=== PATIENT | male | born 1975 | race Caucasian/White ===

== ENCOUNTER 2022-07-05 08:42 | Emergency (ER) | payer OTHER, SELFPAY ==
[2022-07-05 09:35] VITALS: BP 136/92; PULSE 86; RESP 18; TEMP 36.5; O2SAT 98; BMI 31.1
--- NOTE | 2022-07-05 10:48 | ED_ITS ---
HPI - General Adult General Chief complaint: Dental/Oral Stated complaint: facial swelling Time Seen by Provider: 07/05/22 10:48 Source: patient Mode of arrival: ambulatory Limitations: no limitations History of Present Illness HPI narrative: Patient is a 46 year old assigned male at with no reported medical history presenting to the emergency department today with dental pain. Patient states that a week ago he had a root canal and then a few days after developed pain in the area. Patient states that he was seen by his dentist who started him on Amoxcillin but because he is having worsening swelling, they recommended he come into the hospital. Patient denies any dizziness, lightheadedness, abdominal sarmad n, nausea, vomiting, fever, chills, blurry vision, double vision, loss of vision, chest pain, difficulty breathing, shortness of breath, back pain, night sweats, pain with urination, increased urinary frequency, increased urinary urgency, blood in his urine or stool, syncope or a near syncopal episode, recent trauma or falls, bowel incontinence, bladder incontinence, bowel retention, bladder retention, or any other complaints at this time. Onset (ago): day(s) (4) Location: mouth Radiation: non-radiation Severity: mild Severity scale (1-10): 2 Quality: aching Pain Consistency: constant Relieving factors: none Exacerbating factors: none Associated symptoms: denies other symptoms Treatments prior to arrival: other (amoxicillin) Related Data Previous Rx's Medication Instructions Recorded clindamycin HCl 300 mg capsule 300 mg PO TID 7 days #21 caps 07/05/22 oxycodone 10 mg tablet 10 mg PO Q6H PRN pain #10 tabs 07/05/22 Allergies Allergy/AdvReac Type Severity Reaction Status Date / Time No Known Allergies Allergy Verified 07/05/22 09:35 Review of Systems Constitutional: Constitutional: Reports no additional constitutional complaints, Denies chills, Denies fever(s) and Denies night sweats Eyes: Eyes: Reports no additional eye complaints, Denies blurry vision, Denies change in vision, Denies diplopia, Denies eye discharge, Denies loss of vision and Denies eye pain ENT: Denies dizziness Comments: swelling in mouth Cardiovascular: Cardiovascular: Reports no additional cardiovascular complaints, Denies chest pain, Denies lightheadedness, Denies Loss of Consciousness and Denies dyspnea Respiratory: Respiratory: Reports no additional respiratory complaints and Denies dyspnea Gastrointestinal: Gastrointestinal: Reports no additional gastrointestinal complaints, Denies abdominal pain, Denies melena, Denies hematochezia, Denies change in bowel habits and Denies change in stool character Genitourinary: Genitourinary: Reports no additional male genitourinary complai nts, Denies hematuria, Denies oliguria, Denies difficulty urinating, Denies dysuria, Denies urinary frequency, Denies urinary hesitancy, Denies urinary incontinence and Denies urinary urgency Musculoskeletal: Musculoskeletal: Reports no additional musculoskeletal complaints, Denies numbness and Denies tingling Neurologic: Denies dizziness, Denies loss of vision, Denies numbness and Denies tingling Psychiatric: Psychiatric: Reports no additional psychiatric complaints Endocrine: Endocrine: Reports no additional endocrine complaints Hematologic/Lymphatic: Hematologic/Lymphatic: Reports no additional hematologic/lymphatic complaints Allergic/Immunologic: Allergic/Immunologic: Reports no additional allergic/immunologic complaints PMFSH Past Medical History Attestation statement: The following information was validated with the patient. Source: old records reviewed and nursing notes reviewed Social History Social History Advance Directives: No Advance Directives Information Provided: Yes Physical Exam ED Vital Signs: Vital Signs - 24 hr 07/05/22 09:35 Temperature 97.7 F Pulse Rate 86 Respiratory Rate 18 Blood Pressure 136/92 H Pulse Oximetry 98 Oxygen Delivery Method Room Air BMI result Body Mass Index 31.1 Const General: cooperative, no acute distress, alert and awake Nutritional Appearance: well nourished Orientation/consciousness: patient oriented x3 Limitations: no limitations [facility] Head: Yes normal to inspection and Yes atraumatic Ears: hearing grossly normal bilaterally and external ears normal General nose exam: Normal external nose present, no nasal discharge noted and no epistaxis Face and sinus: Yes normal facial exam, No abrasion and No laceration Mouth: Normal oral and palatal mucosa present, no drooling and no muffled voice Teeth image: 1. swollen fluctuant area - consistent with abscess Eyes General: appearance normal, both eyes and all related structures Periorbital: periorbital findings normal Eyelids: Yes eyelids normal Conjunctivae: conjunctivae normal Pupils: Equal, round and reactive pupils present EOM: EOMs intact bilaterally Neck Neck: Yes normal visual inspection, Yes full ROM and Yes no lymphadenopathy Chest Chest palpation & inspection: normal inspection of the chest Resp Effort & Inspection: normal respiratory effort and able to speak in complete sentences Auscultation: clear to auscultation bilaterally Cardio Rate: regular rate Rhythm: regular rhythm GI Inspection: Yes normal to inspection Palpation (GI): Soft to palpation, not firm, nontender, no guarding and not rigid Neuro General: patient oriented x3 and moves all extremities Cranial nerves: Yes Equal, round and reactive pupils present Cognition (Neuro): normal cognition Motor exam (neuro): 5/5 motor strength present throughout Sensory Exam: Normal double simultaneous stimulation for sensation Coordination: [id number] test normal Extrem General: Yes normal to inspection, Yes full ROM and Yes capillary refill normal Psych Appearance: grossly normal Mental Status: mental status grossly normal Affect: normal affect Attitude: cooperative Thought process: Normal thought process present Thought content: Normal thought content present Insight: Good insight present (Psych) Medications Administered Discontinued Medications Generic Name Dose Route Start Last Admin Trade Name Freq PRN Reason Stop Dose Admin Oxycodone HCl 10 mg 07/05/22 10:54 07/05/22 11:26 Oxycodone Hcl Immed Release 5 Mg Tablet PO 07/05/22 10:55 10 mg ONCE ONE Administration Procedures Abscess I/D Site: oral Technique: needle aspiration Amount of fluid expressed (mL): 10 Sent for culture/gram staining?: No Irrigation: No Packing used?: none Medical Decision Making Medical Decision Making [facility] Narrative: Patient is a 46 year old assigned male at with no reported medical history presenting to the emergency department today with swelling in his mouth. Patient's physical exam showed a small swollen, fluctuant, area as described in the physical exam portion of this chart. I explained my physical exam findings to the patient. I answered all questions asked by the patient. Patient's abscess was drained, per procedure note, without incident. I stressed the importance of the patient taking his medication as prescribed. I stressed the importance of the patient following up with his primary care provider and a dentist. I stressed the importance of the patient returning to the emergency department immediately if his symptoms were to worsen or if he were to develop any dizziness, shortness of breath, difficulty breathing, chest pain, blurry vision, loss of vision, nausea, vomiting, abdominal pain, fever, chills, back pain, or any other complaints. Patient verbalized agreement and understanding with this treatment plan and discharge. Differential Diagnosis Differential Diagnoses: The differential diagnosis associated with the presentation includes dental abscess Discharge Plan Discharge Clinical Impression: Dental abscess Patient Disposition: Home, Self-Care Instructions: Dental Abscess (ED), Narcotic Safety (ED), Safe Disposal of Narcotics (ED) Additional Instructions: Follow up with your primary care provider and your dentist. Return to the emergency department immediately if your symptoms worsen or if you develop any dizziness, shortness of breath, difficulty breathing, chest pain, blurry vision, loss of vision, nausea, vomiting, abdominal pain, fever, chills, back pain, or any other complaints. Call or visit any of the clinics below to establish with a dentist: [facility] [address] [place] [address] [facility] [address] [facility], [address] [address] [facility] [address] [place] [address] [facility] [address] [place] [address] [place] [address] [place] [address] Prescriptions: New clindamycin HCl 300 mg capsule 300 mg PO TID 7 Days Qty: 21 0RF oxycodone 10 mg tablet 10 mg PO Q6H PRN (Reason: pain) Qty: 10 0RF Rx Instructions: Partial Fill upon patient request. Referrals: Martinez Daigle DO [Primary Care Provider] - Stand Alone Forms: Work/School Release Interventions: ED Discharge Assessment Last Done: 07/05/22 11:34 Discharge Date/Time: 07/05/22 11:34 Print Language: Serbian
--- OUTSIDE RECORDS SUMMARY | 2022-07-05 11:07 | XMS_ITS | Continuity of Care Document ---
:1975 Author Organization [facility] Address [address] [place] [address]- Care Team Providers Name Role Phone Soham CHATMAN, Celestina Gillis Primary Care Physician Encounter [facility] NBR [id number] Date(s): 07/04/21 - 08/03/21 [facility] [address] [place] [address]- Allergies, Adverse Reactions, Alerts Substance Reaction Severity Status Bee Stings Active Immunizations Given and Recorded Vaccine Date Status Refusal Reason tetanus/diphtheria/pertussis, acel(Tdap)1 06/11/18 Given 1Result Comment: [facility]: [id number] Medications ciclopirox 0.77% topical gel 1 application, Topically, 2 times a day, to affected area, # 45 Gm, 3 Refills, Maintenance, 01/22/2116:26:00 EDT, Gel, [id number], Partial fill upon patient request if the prescription is for a schedule II opioid drug., 1 application Topicall... Start Date: 01/21/21 Stop Date: 05/21/21 Status: Orderednicotine 21 mg/24 hr transdermal film, extended release 1 patch, Topically, Daily, # 30 patch, 1 Refills, Maintenance, 01/21/21 16:19:00 EDT, Patch, [id number], 1 patch Topically Daily, 183, cm, 01/21/21 16:01:00 EDT, Height Start Date: 01/21/21 Status: OrderedWellbutrin SR 150 mg/12 hours oral tablet, extended release 1 tablet = 150 mg, By Mouth, 2 times a day, Take 1 tablet daily for the first 3 days, then take 2 times daily each subsequent day, # 60 tablet, 1 Refills, Maintenance, 01/21/21 16:18:00 EDT, ER Tablet,[id number], 183, cm, 01/21/21 16:01:00 ED... 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
--- OUTSIDE RECORDS SUMMARY | 2022-07-05 11:07 | XMS_ITS | Continuity of Care Document ---
:1975 Author Organization [facility] Address [address] [place] [address]- Care Team Providers Name Role Phone Celestina Rousseau NP Primary Care Physician Encounter [facility] NBR [id number] Date(s): 09/02/21 - 09/09/21 [facility] [address] [place] [address]- Encounter Diagnosis Nicotine dependence (Discharge Diagnosis) - 09/02/21 Chronic thoracic spine pain (Discharge Diagnosis) - 09/02/21 Attending Physician: Not on Staff, Attending MD Referring Physician: Celestina Rousseau NP Allergies, Adverse Reactions, Alerts Substance Reaction Severity Status Bee Stings Active Immunizations Given and Recorded Vaccine Date Status Refusal Reason tetanus/diphtheria/pertussis, acel(Tdap)1 06/11/18 Given 1Result Comment: [facility]: [id number] Medications ciclopirox 0.77% topical gel 1 application, [...] 16:01:00 EDT, Height 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 Nicotine dependence(Confirmed) Active Obese class I(Confirmed) Active Obesity(Confirmed) Active Onychomycosis(Confirmed) Active Tobacco abuse(Confirmed) Active Diagnosis Diagnosis Type Effective Dates Health Clinical Infor [facility] Status Service Nicotine Discharge 09/02/21 dependence Diagnosis Chronic thoracic Discharge 09/02/21 spine pain Diagnosis Vital Signs Most recent to oldest [Reference Range]: 1 Height 183 cm (09/02/21 10:26 AM) Weight 101.5 kg (09/02/21 10:26 AM) Oxygen Saturation [94-100 %] 98 % (09/02/21 10:26 AM) Pulse Rate [55-90 bpm] 110 bpm *H* (09/02/21 10:26 AM) Body Mass Index [18.5-24.99] 30.31 *>HHI* (09/02/21 10:26 AM) Blood Pressure [90-138/55-84 mm Hg] 120/86 mm Hg (09/02/21 10:26 AM) Respiratory Rate [16-30 br/min] 17 br/min (09/02/21 10:26 AM) Temperature [96.8-100.4 DegF] 97.4 DegF (09/02/21 10:26 AM) Liters per Minute 0 L/min (09/02/21 10:26 AM) Mode of Delivery (Oxygen) Room air (09/02/21 10:26 AM) Blood pressure sites Arm, left (09/02/21 10:26 AM) Temperature Route Temporal (09/02/21 10:26 AM) Weight Obtained Via Standing scale (09/02/21 10:26 AM) Social History Social History Type Response Smoking Status Current every day smoker; Ty pe: Cigarettes entered on: 12/10/17 Sex
--- OUTSIDE RECORDS SUMMARY | 2022-07-05 11:07 | XMS_ITS | Continuity of Care Document ---
:1975 Author Organization [facility] Address [address] [place] [address]- Care Team Providers Name Role Phone Celestina Rousseau NP Primary Care Physician Encounter [facility] NBR [id number] Date(s): 01/21/21 - 01/28/21 [facility] [address] [place] [address]- Encounter Diagnosis Heroin abuse in remission (Discharge Diagnosis) - 01/21/21 Obesity (Discharge Diagnosis) - 01/21/21 Nicotine dependence (Discharge Diagnosis) - 01/21/21 Physical exam (Discharge Diagnosis) - 01/21/21 Onychomycosis (Discharge Diagnosis) - 01/21/21 Attending Physician: Celestina Rousseau NP Allergies, Adverse Reactions, Alerts Substance Reaction Severity Status Bee Stings Active Immunizations Given and Recorded Vaccine Date Status Refusal Reason tetanus/diphtheria/pertussis, acel(Tdap)1 06/11/18 Given 1Result Comment: [facility]: [id number] Medications ciclopirox 0.77% topical gel 1 application, [...] 1 Refills, Maintenance, 01/21/21 16:18:00 EDT, ER Tablet,[id number], 183, cm, 01/21/21 16:01:00 ED... 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 Nicotine dependence(Confirmed) Active Obesity(Confirmed) Active Onychomycosis(Confirmed) Active Tobacco abuse(Confirmed) Active Diagnosis Diagnosis Type Effective Dates Health Clinical Infor mant Status Service Heroin abuse in Discharge 01/21/21 remission Diagnosis Obesity Discharge 01/21/21 Diagnosis Nicotine dependence Discharge 01/21/21 Diagnosis Physical exam Discharge 01/21/21 Diagnosis Onychomycosis Discharge 01/21/21 Diagnosis Vital Signs Most recent to oldest [Reference Range]: 1 Height 183 cm (01/21/21 4:01 PM) Weight 112.2 kg (01/21/21 4:01 PM) Oxygen Saturation [94-100 %] 98 % (01/21/21 4:01 PM) Pulse Rate [55-90 bpm] 100 bpm *H* (01/21/21 4:01 PM) Body Mass Index [18.5-24.99] 33.5 *>HHI* (01/21/21 4:01 PM) Blood Pressure [90-138/55-84 mm Hg] 118/74 mm Hg (01/21/21 4:01 PM) Temperature [96.8-100.4 DegF] 97.5 DegF (01/21/21 4:01 PM) Mode of Delivery (Oxygen) Room air (01/21/21 4:01 PM) Blood pressure sites Arm, right (01/21/21 4:01 PM) Temperature Route Temporal (01/21/21 4:01 PM) Weight Obtained Via Standing scale (01/21/21 4:01 PM) Social History Social History Type Response Smoking Status Current every day smoker; Ty pe: Cigarettes entered on: 12/10/17 Sex
--- OUTSIDE RECORDS SUMMARY | 2022-07-05 11:07 | XMS_ITS | Continuity of Care Document ---
:1975 Author Organization [facility] Address [address] [place] [address]- Care Team Providers Name Role Phone Soham CHATMAN, Celestina Gillis Primary Care Physician Encounter [facility] [id number] Date(s): 09/02/21 - 10/02/21 [facility] [address] [place] [address]- Attending Physician: Romulo Gonzalez Admitting Physician: AdmRomulo franklin Referring Physician: AdmtrRomulo Allergies, Adverse Reactions, Alerts Substance Reaction Severity Status Bee Stings Active Immunizations Given and Recorded Vaccine Date Status Refusal Reason tetanus/diphtheria/pertussis, acel(Tdap)1 06/11/18 Given 1Result Comment: [facility]: [id number] Medications ciclopirox 0.77% topical gel 1 application, [...]
--- OUTSIDE RECORDS SUMMARY | 2022-07-05 11:07 | XMS_ITS | Continuity of Care Document ---
:1975 Author Organization [facility] Address [address] [place] [address]- Care Team Providers Name Role Phone Soham CHATMAN, Celestina Gillis Primary Care Physician Encounter [facility] Date(s): 08/28/21 - 08/28/[address] [address]- Discharge Disposition: A-D/C Home Attending Physician: Neal Lieberman MD Admitting Physician: Neal Lieberman MD Referring Physician: Not on Staff, Referring MD Allergies, Adverse Reactions, Alerts Substance Reaction Severity Status Bee Stings Active Immunizations Given and Recorded Vaccine Date Status Refusal Reason tetanus/diphtheria/pertussis, acel(Tdap)1 06/11/18 Given 1Result Comment: [facility]: [id number] Medications ciclopirox 0.77% topical gel 1 application, [...] 1 Refills, Maintenance, 01/21/21 16:18:00 EDT, ER Tablet,[id number], 183, cm, 01/21/21 16:01:00 ED... 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 Nicotine dependence(Confirmed) Active Obese class I(Confirmed) Active Obesity(Confirmed) Active Onychomycosis(Confirmed) Active Tobacco abuse(Confirmed) Active Results Radiology Reports Exam Date Time Procedure Performing Provider Status 08/28/21 11:06 AM Chest 2 Views Frontal and Lat Dotty Vu (Verified) Notes:(Chest 2 Views Frontal and Lat) Reason For Exam: Shortness of Breath, Fever;Other:RESULT: Chest 2 Views Frontal and Lat Chest 2 Views Frontal and Lat Hx of Present Illness: reports intermittent right mid back pain that has been ongoing for months, states it normally resolved within a few days, has been worsening for the last 4-5 days. No numbness, tingling, N V D, urinary symptoms. Remote history of kidney stone.; Reason: Other:; Shortness of Breath, Fever; Clinical Question(s): Pneumonia COMPARISON: None. FINDINGS: LINES AND TUBES: None. LUNGS AND PLEURA: Clear lungs. Normal pulmonary vascularity. No evidence of pleural effusion, but the inferior tip of one posterior costophrenic angle, probably the right, is excluded from the lateral view. No pneumothorax. HEART, MEDIASTINUM AND SHILPA: Heart is normal in size. Normal upper mediastinal and hilar contour. BONES AND SOFT TISSUES: No acute abnormality. IMPRESSION: Negative chest, except for mild posterior costophrenic angle limitation. WSN: [id number] Ordering Physician: Neal Lieberman Dictated By: Stewart Mejia MD Dictated Date/Time: 08/28/21 11:14 a Reviewed By: Stewart Mejia MD Signed By: Stewart Mejia MD Signed Date/Time: 08/28/21 11:14 am Transcribed By: AISSATOU Transcribed Date/Time: 08/28/21 11:14 am Vital Signs Most recent to oldest 1 2 3 [Reference Range]: Height 183 cm 183 cm 183 cm (08/28/21 11:36 AM) (08/28/21:23 AM) (08/28/21 AM) Weight 102.3 kg 102.3 kg (08/28/21: AM) (08/28/21 AM) Oxygen Saturation [94-100 %] 100 % 100 % (08/28/21:36 AM) (08/28/21: AM) Pulse Rate [55-90 bpm] 88 bpm 88 bpm (08/28/21:36 AM) (08/28/21: AM) Body Mass Index [18.5-24.99] 30.55 *>HHI* (08/28/21: AM) Blood Pressure [90-138/55-84 122/76 mm Hg 129/66 mm Hg mm Hg] (08/28/21:36 AM) (08/28/21: AM) Respiratory Rate [16-30 16 br/min 16 br/min br/min] (08/28/21:36 AM) (08/28/21: AM) Temperature [96.8-100.4 DegF] 98.4 DegF (08/28/21: AM) Liters per Minute 0 L/min (08/28/2136 AM) Mode of Delivery (Oxygen) Room air Room air (08/28/21 11:36 AM) (08/28/21: AM) Blood pressure sites Arm, right Arm, right (08/28/21:36 AM) (08/28/21: AM) Temperature Route Temporal (08/28/21: AM) Dry Weight 102.3 kg 102.3 kg (08/28/21:23 AM) (08/28/21:22 AM) Dry Weight Obtained Via Standing scale (08/28/21: AM) Social History Social History Type Response Smoking Status Current every day smoker; Ty pe: Cigarettes entered on: 12/10/17 Sex
[2022-07-05] MEDS: oxyCODONE HCl Immed Release 5 MG TABLET 10 MG PO (11:26)
== END 2022-07-05 11:34 | disposition home or self-care (01) ==
PROVIDERS: Emergency Provider Emergency Medicine; PCP Family Medicine
DX: K04.7 Periapical abscess without sinus (principal); K08.89 Other specified disorders of teeth and supporting structures
CPT/HCPCS: 10160; 99283

== ENCOUNTER 2023-05-07 15:00 | Outpatient (AMB) | payer OTHER, SELFPAY ==
--- NOTE | 2023-05-07 15:02 | A.OFFVISCC_ITS ---
Intake Vital Signs 05/07/23 15:07 BP 128/84 Blood Pressure Location Lt radial Position Sitting Pulse 91 Pulse Source Pulse Oximeter Pulse Oximetry (%) 97 Oxygen Delivery Method Room Air Intake Visit Reasons: MAT Intake Intake Note: THE PATIENT IS HERE FOR A MAT INTAKE Housekeeping Attendant Required: No Allergies No Known Allergies Allergy (Verified 05/07/23 15:07) HPI MAT Intake HPI Details Patient presents for intake and evaluation of alcohol use Patient hyperverbal and quite circumstantial--unclear if this is nerves or baseline He reports that his alcohol use has been increasing and is impacting other areas of his life--in particular work (calling out) He states that he drinks 1-2 sleeves of vodka every night that he does NOT have his daughter. So, some weeks its 5 days in a row of drinking at this amount and other weeks it is not drinking for 3 days or 5 days. Patient denies any withdrawal sx on the days that he is not drinking, however, he also later stated that on occasion he does have one or two drinks when with his daughter. He reports drinking at this rate for about a year. Denies any history of seizures, denies any stomach issues, diaphoresis, tremor (visible tremor noted). ? minimizing sx TEE History -opiate addiction -started with prescrip tion pain medications then transitioned to IV heroin use -treated with methadone --tapered and d/ c for the last 11 years -legal issues associated with drinking a t a very young age (2 DUI's before age 22) Medical History -no chronic health issues -pcp Adriana REA -heartburn occasionally Family History of AUD Discussed goals with patient--he reports wants to discontinue alcohol use all together. Reviewed strategies for doing so, and also reviewed concerns for abruptly discontinuing alcohol. Patient verbalizing concern/dislike for strategy that included tapering alcohol use over time. This medical technical writer and RN reviewed concern for withdrawal given reported amount of alcohol consumed with regularity. Reviewed risks, varying time line for withdrawal sx to present, etc. He is not interested in inpatient ATS. Does not want to taper consumption, but also low confidence for abstaining all together. Review of Systems Const Reports as per HPI, Reports difficulty sleeping and Reports poor appetite GI Denies abdominal pain, Denies hematochezia and Denies diarrhea Physical Exam Vital Signs: Last Vital Signs Pulse 91 05/07/23 15:07 BP 128/84 05/07/23 15:07 Pulse Ox 97 05/07/23 15:07 Oxygen Delivery Method Room Air 05/07/23 15:07 Const General: cooperative, healthy appearing and anxious Nutritional Appearance: average body habitus Orientation/consciousness: patient oriented x3 Limitations: no limitations Neuro General: patient oriented x3 Psych Appearance: well kempt Speech and movement: Clear speech present Affect: Anxious affect present Attitude: cooperative Thought process: Circumstantial thought process present Insight: Fair insight present (Psych) Judgement: Fair judgement present (Psych) Assessment & Plan Assessment & Plan (1) Alcohol use disorder, severe, dependence: Code(s): F10.20 - Alcohol dependence, uncomplicated Plan: * naltrexone 50mg QD * gabapentin 100mg BID PRN * verbal and written information provided to patient. * phone check in with RN and 2 week follow up in office * encouraged to call with any questions or concerns * labs to be completed prior to next visit Medications: New naltrexone take 1/2 tab daily for three days then increase to one tab daily 50 mg PO DAILY 30 tabs 0RF gabapentin 100 mg PO BID 30 caps 0RF thiamine HCl (vitamin B1) 100 mg PO DAILY 30 tabs 0RF folic acid 1 mg PO DAILY 30 tabs 0RF Discontinued oxycodone Partial Fill upon patient request. Discontinued Reason: Patient Completed Course 10 mg PO Q6H PRN 10 tabs 0RF pain Coding Level of Care Code New Pt Level 4 (68471) Diagnoses Alcohol use disorder, severe, dependence F10.20
[2023-05-07 15:07] VITALS: BP 128/84; PULSE 91; O2SAT 97
== END 2023-05-07 16:20 | disposition home or self-care (01) ==
PROVIDERS: PCP Family Medicine; Visit Provider Nurse Practitioner Psychiatric/Mental Health
DX: F10.20 Alcohol dependence, uncomplicated (principal)
CPT/HCPCS: 99204

== ENCOUNTER → 2023-05-07 15:00 | Outpatient (BNVA) | payer OTHER, SELFPAY | PROVIDERS: PCP Family Medicine; Visit Provider Nurse Practitioner Psychiatric/Mental Health ==

== ENCOUNTER 2023-05-24 11:59 | Outpatient (REF) | payer OTHER, SELFPAY ==
[2023-05-24 12:14] LABS: MANUAL DIFF FLAG NO
[2023-05-24 13:31] LABS: Basophils Absolute Auto 0.1 X10*3/uL (0.0-0.2); Basophils Percent Auto 1.8 % (0-2); Eosinophils Absolute Auto 0.2 X10*3/uL (0.0-0.4); Eosinophils Percent Auto 3.4 % (0-4); Hematocrit 44.6 % (42.0-52.0); Hemoglobin 14.9 g/dl (14.0-18.0); Imm Gran Abs Auto 0.01 X10*3/uL (0.00-0.03); Imm Gran Pct Auto 0.2 % (0.0-0.4); Lymphocytes Absolute Auto 1.6 X10*3/uL (1.2-4.9); Mean Corpuscular HGB Conc 33.4 g/dl (31.0-36.0); Mean Corpuscular Hemoglobin 30.4 pg (27.0-33.0); Mean Platelet Volume 9.2 fL (9.4-12.4); Monocytes Absolute Auto 0.5 X10*3/uL (0.1-1.2); Monocytes Percent Auto 9.7 % (2-11); Neutrophils Absolute Auto 3.1 x10*3/uL (2.0-8.3); Neutrophils Percent Auto 55.9 % (45-73); Platelet Count 410 X10*3/uL (160-400); White Blood Count 5.6 X10*3/uL (4.8-10.8)
[2023-05-24 13:56] LABS: Alanine Aminotransferase 21 U/L (0-40); Albumin Level 4.3 g/dL (3.5-5.0); Alkaline Phosphatase 73 U/L (39-117); Anion Gap 13 (12-20); Aspartate Amino Transferase 16 U/L (5-37); Bilirubin Total 0.4 mg/dL (0.0-1.0); Blood Urea Nitrogen 13 mg/dL (9-16); Calcium 9.4 mg/dL (8.4-10.2); Carbon Dioxide 25 mmol/L (22-29); Chloride 108 mmol/L (96-108); Estimated Glomerular Filt Rate > 60; Glucose Random 93 mg/dL (60-115); Potassium 4.1 mmol/L (3.3-5.1); Sodium 142 mmol/L (135-145); Total Protein 7.3 g/dL (6.5-8.0)
[2023-05-25 08:23] LABS: HBS Num1 0.41 mIU/mL (0-7.99); HBc Num1 0.03 S/CO (0.00-0.79); HBsAGNum1 0.31 S/CO (0.00-0.99); HIV AB/AG Nonreactive (Nonreactive); HIV Num 1 0.06 S/CO (0.00-0.99); Hepatitis A Antibody IgM 0.16 Index (0-0.79); Hepatitis B Core Antibody Nonreactive (Nonreactive); Hepatitis B Surface Antigen Negative (Negative); ~HepC Num1 0.12 S/CO (0.00-0.79); ~Hepatitis A Antibody IgM Nonreactive (Nonreactive); ~Hepatitis B Surface Antibody NONREACTIVE (Nonreactive); ~Hepatitis C Antibody Nonreactive (Nonreactive)
== END 2023-05-24 12:00 | disposition home or self-care (01) ==
LOC: HO.LAB 11:59
PROVIDERS: Visit Provider Nurse Practitioner Psychiatric/Mental Health
DX: Z11.4 Encounter for screening for human immunodeficiency virus [HIV] (principal); F10.20 Alcohol dependence, uncomplicated
CPT/HCPCS: 36415; 80053; 85025; 86704; 86706; 86709; 86803; 87340; 87389

== ENCOUNTER 2023-05-25 10:18 | Outpatient (AMB) | payer OTHER, SELFPAY ==
--- NOTE | 2023-05-25 10:19 | A.OFFVISCC_ITS ---
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 Allergies No Known Allergies Allergy (Verified 05/25/23 10:31) Do you need a note to return to daycare/school/sports/work: No HPI MAT Visit HPI Details Patient presents for MAT visit He reports on the night of his previous visit he drank 5 nips (a decrease from 10), and has not had a drink since He denies withdrawal symptoms Reports he is feeling very happy with his early recovery He has been taking his naltrexone, vitamins, and gabapentin daily He is asking for a refill on his gabapentin at this time, reports it has helped his anxiety and has made him feel calm Work is going well, boss knows he is in early recovery and is supportive Review of Systems Const Reports as per HPI Physical Exam Vital Signs: Last Vital Signs Pulse 76 05/25/23 10:30 BP 114/76 05/25/23 10:30 Pulse Ox 96 05/25/23 10:30 Oxygen Delivery Method Room Air 05/25/23 10:30 Const General: cooperative and healthy appearing Psych Appearance: grossly normal Mental Status: mental status grossly normal Speech and movement: Normal speech and movement present Affect: Ecstatic affect present Attitude: cooperative Assessment & Plan Assessment & Plan (1) Alcohol use disorder, severe, dependence: Code(s): F10.20 - Alcohol dependence, uncomplicated Plan: -Refill gabapentin -Discussed recovery supports -Refill naltrexone -Follow up 2 weeks Medications: Changed From naltrexone take 1/2 tab daily for three days then increase to one tab daily 50 mg PO DAILY 30 tabs 0RF To naltrexone 50 mg PO DAILY 30 tabs 0RF Refilled gabapentin 100 mg PO BID 60 caps 0RF Coding Level of Care Code Est Pt Level 3 (33964) Diagnoses Alcohol use disorder, severe, dependence F10.20
[2023-05-25 10:30] VITALS: BP 114/76; PULSE 76; O2SAT 96
== END 2023-05-25 10:53 | disposition home or self-care (01) ==
PROVIDERS: PCP Family Medicine; Visit Provider Nurse Practitioner Family
DX: F10.20 Alcohol dependence, uncomplicated (principal)
CPT/HCPCS: 99213

== ENCOUNTER → 2023-05-25 10:18 | Outpatient (BNVA) | payer OTHER, SELFPAY | PROVIDERS: PCP Family Medicine; Visit Provider Nurse Practitioner Family ==

== ENCOUNTER 2023-06-08 14:32 | Outpatient (AMB) | payer OTHER, SELFPAY ==
[2023-06-08 14:40] VITALS: BP 120/82; PULSE 96; RESP 16; O2SAT 98
--- NOTE | 2023-06-08 14:40 | A.OFFVISCC_ITS ---
Intake Vital Signs 06/08/23 14:40 BP 120/82 Blood Pressure Location Lt brachial Position Sitting Respiration 16 Pulse 96 Pulse Source Pulse Oximeter Pulse Oximetry (%) 98 Oxygen Delivery Method Room Air Intake Visit Reasons: MAT Visit Allergies No Known Allergies Allergy (Verified 05/25/23 10:31) HPI MAT Visit HPI Details Patient presents for AUD treatment follow up Reports he has not had anything to drink in 5 weeks on Sunday Has been taking Naltrexone--tolerating dose Minimal to no thoughts of drinking Feeling more like himself Discussed recovery supports in the community--patient contemplating, but not interested at this time. Review of Systems Const Reports as per HPI and Reports no additional complaints Physical Exam Vital Signs: Last Vital Signs Pulse 96 06/08/23 14:40 Resp 16 06/08/23 14:40 BP 120/82 06/08/23 14:40 Pulse Ox 98 06/08/23 14:40 Oxygen Delivery Method Room Air 06/08/23 14:40 Const General: cooperative and healthy appearing Psych Appearance: grossly normal Mental Status: mental status grossly normal Speech and movement: Normal speech and movement present Attitude: cooperative Assessment & Plan Assessment & Plan (1) Alcohol use disorder, severe, dependence: Code(s): F10.20 - Alcohol dependence, uncomplicated Plan: * relapse prevention discussion * follow up 4 weeks Coding Level of Care Code Est Pt Level 3 (05566) Diagnoses Alcohol use disorder, severe, dependence F10.20
== END 2023-06-08 15:41 | disposition home or self-care (01) ==
PROVIDERS: PCP Family Medicine; Visit Provider Nurse Practitioner Psychiatric/Mental Health
DX: F10.20 Alcohol dependence, uncomplicated (principal)
CPT/HCPCS: 99213

== ENCOUNTER → 2023-06-08 14:32 | Outpatient (BNVA) | payer OTHER, SELFPAY | PROVIDERS: PCP Family Medicine; Visit Provider Nurse Practitioner Psychiatric/Mental Health ==

== ENCOUNTER 2023-07-06 15:34 | Outpatient (AMB) | payer OTHER, SELFPAY ==
--- NOTE | 2023-07-06 15:35 | MHC.AM.SUB ---
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 Allergies No Known Allergies Allergy (Verified 07/06/23 15:39) Do you need a note to return to daycare/school/sports/work: No HPI MAT Visit HPI Details Patient presents for AUD treatment and follow up Reports things are going well for him, has been in recovery 9 weeks Reports he went to lunch with a friend the other day, she had a drink and he felt unbothered by that which he felt was encouraging He is still taking naltrexone daily and tolerating it well Has no concerns today Review of Systems Const Reports as per HPI Physical Exam Vital Signs: Last Vital Signs Pulse 93 07/06/23 15:39 BP 116/78 07/06/23 15:39 Pulse Ox 97 07/06/23 15:39 Oxygen Delivery Method Room Air 07/06/23 15:39 Const General: cooperative and comfortable Resp Effort & Inspection: normal respiratory effort Psych Appearance: grossly normal Mental Status: mental status grossly normal Speech and movement: Normal speech and movement present Affect: normal affect Attitude: cooperative Assessment & Plan Assessment & Plan (1) Alcohol use disorder, severe, dependence: Code(s): F10.20 - Alcohol dependence, uncomplicated Plan: -Continue naltrexone -Relapse prevention discussion -Follow up 4 weeks Coding Level of Care Code Est Pt Level 3 (66908) Diagnoses Alcohol use disorder, severe, dependence F10.20
[2023-07-06 15:39] VITALS: BP 116/78; PULSE 93; O2SAT 97
== END 2023-07-06 16:25 | disposition home or self-care (01) ==
LOC: HO.HCC 15:34
PROVIDERS: PCP Family Medicine; Visit Provider Nurse Practitioner Family
DX: F10.20 Alcohol dependence, uncomplicated (principal)
CPT/HCPCS: 99213

== ENCOUNTER → 2023-07-06 15:34 | Outpatient (BNVA) | payer OTHER, SELFPAY | PROVIDERS: PCP Family Medicine; Visit Provider Nurse Practitioner Family ==

== ENCOUNTER 2023-08-31 14:32 | Outpatient (AMB) | payer OTHER, SELFPAY ==
--- NOTE | 2023-08-31 14:32 | MHC.AM.SUB ---
Vital Signs 08/31/23 14:43 BP 120/70 Blood Pressure Location Rt radial Position Sitting Respiration 20 Pulse 84 Pulse Source Pulse Oximeter Intake Visit Reasons: MAT Visit Allergies No Known Allergies Allergy (Verified 07/06/23 15:39) HPI HPI MAT Visit: Details: Patient presents for AUD treatment follow up Bright affect, happy to share he has not had any alcohol since he started treatment [place] and felt comfortable with not drinking--he shares that his friends also were not drinking tolerating naltrexone working FT no concerns at this time Review of Systems Const Reports as per HPI and Reports no additional complaints Physical Exam Vital Signs: Last Vital Signs Pulse 84 08/31/23 14:43 Resp 20 08/31/23 14:43 BP 120/70 08/31/23 14:43 Const General: cooperative and comfortable Resp Effort & Inspection: normal respiratory effort Psych Appearance: grossly normal Mental Status: mental status grossly normal Speech and movement: Normal speech and movement present Affect: normal affect Attitude: cooperative Assessment & Plan Assessment & Plan (1) Alcohol use disorder, severe, dependence: Code(s): F10.20 - Alcohol dependence, uncomplicated Category: Medical Plan: -Continue naltrexone -Relapse prevention discussion -Follow up 8 weeks Medications: Refilled naltrexone 50 mg PO DAILY 90 tabs 3RF
[2023-08-31 14:43] VITALS: BP 120/70; PULSE 84; RESP 20
== END 2023-08-31 15:15 | disposition home or self-care (01) ==
PROVIDERS: PCP Family Medicine; Visit Provider Nurse Practitioner Psychiatric/Mental Health
DX: F10.20 Alcohol dependence, uncomplicated (principal)
CPT/HCPCS: 99213

== ENCOUNTER → 2023-08-31 14:32 | Outpatient (BNVA) | payer OTHER, SELFPAY | PROVIDERS: PCP Family Medicine; Visit Provider Nurse Practitioner Psychiatric/Mental Health ==